=== PATIENT | female | born 1960 | race Caucasian/White ===

== ENCOUNTER 2017-04-28 07:39 | Inpatient (IN) ==
--- NOTE | 2017-04-27 21:53 | Discharge Summary ---
<Steffanie Middleton - Last Filed: 04/27/17 21:49> Date of Encounter: 04/27/17 - Discharge Diagnosis (1) Arthritis of knee, right Priority: Primary Status: Acute (2) Status post total knee replacement Priority: Primary Status: Acute Qualifiers: Laterality: right Qualified Code(s): Z96.651 - Presence of right artificial knee joint (3) HTN (hypertension) Priority: Secondary Status: Chronic Qualifiers: Hypertension type: essential hypertension Qualified Code(s): I10 - Essential (primary) hypertension (4) DMII (diabetes mellitus, type 2) Priority: Secondary Status: Chronic Qualifiers: Diabetes mellitus complication status: with unspecified complications Diabetes mellitus mcc insulin use: unspecified mcc insulin use status Qualified Code(s): E11.8 - Type 2 diabetes mellitus with unspecified complications (5) Obesity Priority: Secondary Status: Chronic Qualifiers: Obesity type: due to excess calories Obesity classification: unspecified obesity classification Serious obesity comorbidity presence: without serious comorbidity Qualified Code(s): E66.09 - Other obesity due to excess calories; Z68.38 - Body mass index (BMI) 38.0-38.9, adult (6) Depression Priority: Secondary Status: Chronic Qualifiers: Depression Type: unspecified Qualified Code(s): F32.9 - Major depressive disorder, single episode, unspecified - Discharge Medications Home Medications: Atorvastatin [Lipitor] 40 mg PO HS 11/01/16 [History] Duloxetine HCl [Cymbalta] 60 mg PO QPM 11/01/16 [History] FLUoxetine HCl [Prozac] 40 mg PO QAM 11/01/16 [History] Lisinopril [Zestril] 10 mg PO DAILY 11/01/16 [History] Metoprolol XL (24 HR) Succ [Toprol Xl] 25 mg PO HS 11/01/16 [History] Triamterene/HCTZ 37.5/25mg [Dyazide] 1 tab PO DAILY 11/01/16 [History] Aspirin Enteric Coated [Aspirin EC] 325 mg PO DAILY #21 tablet. 04/27/17 [Rx] OxyCODONE Immed Rel [Roxicodone 5 MG] 5 - 10 mg PO Q6HR PRN #40 tablet 04/27/17 [Rx] Gabapentin [Neurontin] 300 mg PO TID 04/28/17 [History] HYDROcodone/Acet 5/325 mg [[place] 5-325 mg] 1 tab PO TID 04/28/17 [History] Omeprazole [PriLOSEC] 40 mg PO DAILY 04/28/17 [History] metFORMIN [Glucophage] 500 mg PO BID 04/28/17 [History] Allergies/Adverse Reactions: Allergies No Known Allergies Allergy (Verified 04/28/17 08:18) Primary care physician: Deion Cobos CNP - Patient Status Disposition: Home, Self-Care Condition: Good - Discharge Instructions Follow Up With: Deion Cobos CNP [Primary Care Provider] - - Hospital Course Hospital course: Ms. Grant is a 56 year old female - Time Spent with Patient Total time spent providing and/or coordinating discharge services: <Tyler Andujar - Last Filed: 04/30/17 09:03> Date of Encounter: 04/30/17 Time of Encounter: 09:02 - Discharge Diagnosis (1) Arthritis of knee, right Priority: Primary Status: Chronic (2) Status post total knee replacement Priority: Primary Status: Acute Qualifiers: Laterality: right Qualified Code(s): Z96.651 - Presence of right artificial knee joint (3) HTN (hypertension) Priority: Secondary Status: Chronic Qualifiers: Hypertension type: essential hypertension Qualified Code(s): I10 - Essential (primary) hypertension (4) DMII (diabetes mellitus, type 2) Priority: Secondary Status: Chronic Qualifiers: Diabetes mellitus complication status: with unspecified complications Diabetes mellitus mcc insulin use: unspecified emt intermediate insulin use status Qualified Code(s): E11.8 - Type 2 diabetes mellitus with unspecified complications (5) Obesity Priority: Secondary Status: Chronic Qualifiers: Obesity type: due to excess calories Obesity classification: adult class 2 (BMI 35 ? 39.9) Serious obesity comorbidity presence: without serious comorbidity Body mass index: BMI 38.0-38.9 Qualified Code(s): E66.09 - Other obesity due to excess calories; Z68.38 - Body mass index (BMI) 38.0-38.9, adult (6) Depression Priority: Secondary Status: Chronic Qualifiers: Depression Type: unspecified Qualified Code(s): F32.9 - Major depressive disorder, single episode, unspecified Primary care physician: Deion Cobos CNP - Patient Status Functional capacity at discharge: uses cane/walker Overall status at discharge: patient is progressing back to baseline - Hospital Course Hospital course: Ms. Grant is a 56 year old female Status post total knee replacement. The patient had an uneventful postoperative course. They received antibiotics and physical therapy and were discharged in stable condition. There will follow -up in the office in 2 weeks. - Time Spent with Patient Total time spent providing and/or coordinating discharge services:
--- NOTE | 2017-04-28 08:01 | History & Physical Report ---
Date of Encounter: 04/28/17 Time of Encounter: 08:01 24 Hour HP Update - Instructions Instructions: If the History and Physical is less than 30 days old and was completed prior to A.M. admission and or procedure and has NOT been updated on calendar day of procedure please complete this update prior to performing procedure. - Update Patient reports changes in Medical Condition: No Changes in examination, assessment, or condition: No Changes in Medication: No Preop tests/diagnostics Reviewed: Yes Surgery Remains Indicated: Yes Consent for Planned Operative Procedure(s) Verified: Yes - Pre-Operative Checklist Preoperative Checklist Indicated: No Prophylactic Antibiotic Ordered: Yes Is VTE Prophylaxis Indicated?: Yes
[2017-04-28] MEDS ORDERED: CeFAZolin Pre 2,000 MG/100 ML 2,000 MG/100 ML BAG IVPB ONE (08:10)
[2017-04-28] MEDS ORDERED: Ringers Solution, Lactated 1,000 ML IVC SCH ×2 (08:15→11:47)
--- NOTE | 2017-04-28 08:42 | Anesthesia Evaluation PreOp ---
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 History: Denies Any Significant HX Other Medical History: Renal (creatinine is 2.24 today - no prior hx of renal problems) Anesthesia History: No Prior Anesthetic Complications (never underwent anesthesia previously) Alcohol Use: none Drug use: none Medications and Allergies Atorvastatin [Lipitor] 40 mg PO HS 11/01/16 [History] Duloxetine HCl [Cymbalta] 60 mg PO QPM 11/01/16 [History] FLUoxetine HCl [Prozac] 40 mg PO QAM 11/01/16 [History] Lisinopril [Zestril] 10 mg PO DAILY 11/01/16 [History] Metoprolol XL (24 HR) Succ [Toprol Xl] 25 mg PO HS 11/01/16 [History] Triamterene/HCTZ 37.5/25mg [Dyazide] 1 tab PO DAILY 11/01/16 [History] Aspirin Enteric Coated [Aspirin EC] 325 mg PO DAILY #21 tablet. 04/27/17 [Rx] OxyCODONE Immed Rel [Roxicodone 5 MG] 5 - 10 mg PO Q6HR PRN #40 tablet 04/27/17 [Rx] Gabapentin [Neurontin] 300 mg PO TID 04/28/17 [History] HYDROcodone/Acet 5/325 mg [[place] 5-325 mg] 1 tab PO TID 04/28/17 [History] Omeprazole [PriLOSEC] 40 mg PO DAILY 04/28/17 [History] metFORMIN [Glucophage] 500 mg PO BID 04/28/17 [History] Allergies No Known Allergies Allergy (Verified 04/28/17 08:18) - Meds/Allergy Pre-op Review Medications Reviewed: Yes Allergies Reviewed: Yes Beta Blockers on Current Med List: Yes If Beta Blockers taken, Date/Time (Last Dose taken): stopped two days ago; not indicated for this surgery Anesthesia Results - Labs Laboratory Tests 03/31/17 03/31/17 03/31/17 17:40 17:40 17:40 WBC 13.8 H Hgb 13.8 Hct 42.6 Plt Count 255 PT INR APTT Sodium 139 Potassium 4.4 Chloride 106 Carbon Dioxide 23 BUN 28 H Creatinine 2.24 H Est GFR ( Amer) 27 L Est GFR (Non-Af Amer) 22 L BUN/Creatinine Ratio 13 Glucose 223 H Est Mean Plasma Glucose 134 Hemoglobin A1c 6.3 H 04/22/17 13:10 WBC Hgb Hct Plt Count PT 10.8 INR 1.0 APTT 28.9 Sodium Potassium Chloride Carbon Dioxide BUN Creatinine Est GFR ( Amer) Est GFR (Non-Af Amer) BUN/Creatinine Ratio Glucose Est Mean Plasma Glucose Hemoglobin A1c - Imaging EKG: report reviewed, image reviewed (SR) Anesthesia Exam Last Vital Signs Temp 97.8 F 04/28/17 08:00 Pulse 76 04/28/17 08:00 Resp 18 04/28/17 08:00 BP 132/79 04/28/17 08:00 Pulse Ox 97 04/28/17 08:00 Weight: 102 kg NPO (# of Hours): >> 8 hrs - HEENT Pupil (Motor): Pupils equal, EOMI Mallampati: II Teeth: Normal Oral Opening: Greater than 3 - [address] CLERK LOC: Oriented APPELLATE COURT CLERK Motor: Normal RUE, Normal LUE, Normal RLE, Normal LLE, Normal Face - Cardiac Rhythm: Regular Murmur: None - Pulmonary Breath Sounds: bilateral Clear Respiratory Effort: Symmetrical Anesthesia Assess/Plan ASA Score: 3 Modified Elinor Scale for Level of Consciousness: Cooperative, oriented, and tranquil Anesthetic Plan: General, Regional Monitoring Plan: Standard Monitors Recovery Plan: PACU
[2017-04-28] MEDS ORDERED: *HR* Midazolam HCl 2 MG/2 ML VIAL ONE ×2 (08:58→09:31)
[2017-04-28] MEDS ORDERED: *HR* Propofol 200 MG/20 ML VIAL IVP ONE ×2 (08:58→09:31)
[2017-04-28] MEDS ORDERED: *HR* FentaNYL (PF) 100 MCG/2 ML VIAL ONE ×2 (08:58→09:31)
[2017-04-28] MEDS ORDERED: Ondansetron 4 MG/2 ML VIAL ONE (08:59)
[2017-04-28] MEDS ORDERED: Dexamethasone 4 MG/ML VIAL ONE (08:59)
[2017-04-28] MEDS ORDERED: Lidocaine -MPF 2% 2 ML VIAL ONE ×2 (08:59→09:31)
[2017-04-28] MEDS ORDERED: Ketorolac 30 MG/ML VIAL ONE (09:08)
[2017-04-28] MEDS ORDERED: Bupivacaine/Clonidine Syringe 1 EACH SYRINGE ONE (09:15)
[2017-04-28] MEDS ORDERED: ROPIVACAINE HCL/PF 0.5% 30 ML VIAL ONE (09:15)
[2017-04-28] MEDS ORDERED: *HR* Labetalol 20 MG/4 ML SYRINGE IVP PRN (10:07)
[2017-04-28] MEDS ORDERED: Ondansetron 4 MG/2 ML VIAL IVP ONE (10:07)
--- NOTE | 2017-04-28 10:11 | Anesthesia Procedures ---
Date of Encounter: 04/28/17 Time of Encounter: 09:41 Procedures: Anesthesia - Nerve Block Procedure Date: 04/28/17 Time: 09:41 Surgical Procedure: right total knee Checklist: Correct Patient Identifier, Correct procedure, History checked Correct side: Right Blood Thinner: No Monitor Applied: EKG, BP, Pulse Oximetry Supplemental Oxygen via Nasal Cannula (L/min): 2 Sedation: Versed (mg): 2 Sedation: Fentanyl (mcg): 100 Indication: Post Op Analgesia Pre-op Neuro Deficits: Yes Block Type: Femoral, Other (ipack) Sterile Technique: Yes Ultrasound used: Yes Anatomy identified: Yes Visual spread of Local: Yes Neuro Stimulation: Yes Nerve Stimulator Range: 0.2 - 0.4 mA Blood on Needle Aspiration: No Smooth Injection of Local: Yes Pain with Injection of Local: No Prep: Chlorhexadine Needle: 22 x 50 mm Stimuplex Local: 0.25% Bupivicaine w/Clonidine 20 mcg/cc (30ml), Ropivacaine (0.5% 30ml of rop plain) Volume (cc): 60 Number of Attempts: 1 Complications: None/effective block Vitals: vss, block per request of surgeon
--- NOTE | 2017-04-28 10:37 | Orthopedic Operative Note ---
Date of procedure: 04/28/17 Pre-op diagnosis: Right knee arthritis Post-op diagnosis: same Procedure: Procedure: right Total knee replacement Estimated blood loss: 200 cc Hardware: Metal and polyethylene replacement. Arthrex Femur:5 Tibia: 4 PS insert:14 Patella:30 Exam Under anesthesia: Valgus alingment full flexion and extension Procedural Notes:grade 4 arthritic changes lateral and patellofemoral joing Operative procedure: The patient was brought to the operating room and placed on the operating room table. After general anesthesia was administered the operative knee was examined. Findings were noted in the exam under anesthesia. The operative extremity was prepped and draped in sterile surgical fashion. The patient received IV antibiotics prior to skin incision. A standard midline incision was made centered over the patella. The incision was made through the skin and subcutaneous tissue. A medial parapatellar tendon approach was performed. Care was taken to preserve tissue along the medial aspect of the patella. And to protect the patella tendon. The deep MCL was released off the medial tibia. The infra patella fat pad was excised. Knee was brought into flexion. Grade 4 arthritic changes lateral compartment patellofemoral joint. The entry hole was made for the intramedullary femoral guide. The guide was seated in 6 degrees of valgus. Anterior cut was made followed by the distal cut. The ACL the PCL the medial and the lateral menisci were excised. The tibia was subluxed forward. The entry hole was made for the intramedullary tibial guide. Guide was seated to resect 2 mm off the more abnormal side. The knee was brought into flexion the distal femur was sized. The femoral guide was seated, the anterior cut was made followed by the posterior condylar cut, followed by the chamfer cuts. The finishing guide was seated the box cut was made and the lug holes were drilled. The tibia was sized 4, the tibial tray was seated and prepared with the large drill followed by the fin cutter. Trial reduction revealed full extension no varus valgus instability with the appropriate 14 PS Jeannie. The patella was everted and cut was made at the level of the insertion of the quadriceps and patella tendon. The patella was sized the guide was seated and the lug holes are drilled. Trial reduction revealed excellent patella tracking. All trial components were removed all bony surfaces were irrigated. The tibia was cemented first followed by the femur. The 14 PS Jeannie was seated and the knee was brought into full extension. The patella was cemented and held in place with the patellar holding clamp. After the cement had hardened, the knee sat for 2 minutes with a Betadine saline solution. The knee was then irrigated out with 2 L of pulse irrigation. The knee was closed by the PA. The extensor mechanism was closed with #2 FiberWire suture and #2 PDS suture. The subcutaneous tissue was then irrigated and closed deep with #1 PDS suture superficially with 0 PDS suture and skin was closed with skin kimber. The patient was then placed in a sterile dressing and a postoperative brace extubated and transferred to recovery room in stable condition. Anesthesia: GETA Surgeon: Tyler Andujar Stone Driller: Steffanie Middleton Condition: stable Disposition: PACU
[2017-04-28] MEDS: *HR* HYDROmorphone (PF) 1 MG/ML SYRINGE IVP PRN ×6 (11:03→17:15)
[2017-04-28] MEDS ORDERED: *HR* Meperidine 25 MG/ML SYRINGE ONE ×2 (11:05→11:10)
--- NOTE | 2017-04-28 11:45 | Anesthesia Evaluation Post Op ---
Date of Encounter: 04/28/17 Time of Encounter: 11:43 - Vital Signs Vital Signs: Vital Signs/O2 Sat, Most Current Temp Pulse Resp BP Pulse Ox 97.4 F L 93 16 147/73 96 04/28/17 11:30 04/28/17 11:30 04/28/17 11:30 04/28/17 11:30 04/28/17 11:30 - Lungs Lungs: Clear Ascult./Percussion - Airway Airway: Non-obstructed - Cardiovascular Regular Rate - Mental Status Mental Status: Alert & Oriented, Answers Appropriately - Pain Pain Scale: 0 Pain Scale used: Numeric (1 - 10) - Nausea Vomiting Nausea Vomiting: Present - Hydration Hydration: Ice chips - Discharge PostOp Status: Transfer Patient to floor
[2017-04-28] MEDS ORDERED: Sennosides 8.6 MG TABLET PO PRN (11:47)
[2017-04-28] MEDS ORDERED: Ondansetron 4 MG/2 ML VIAL IVP PRN (11:47)
[2017-04-28] MEDS ORDERED: D5% in Water 1,000 ML IVC PRN (11:47)
[2017-04-28] MEDS ORDERED: Dextrose Gel 15 GM PO PRN ×2 (11:47)
[2017-04-28] MEDS ORDERED: Naloxone 0.4 MG/ML INJ IVP PRN (11:47)
[2017-04-28] MEDS ORDERED: MOM Conc 10 ML UD.LIQ PO PRN (11:47)
[2017-04-28] MEDS ORDERED: *HR* OxyCODONE Immed Rel 5 MG TABLET PO PRN (11:47)
[2017-04-28] MEDS ORDERED: *HR* Dextrose 50 % in Water (Syg) 50 ML SYRINGE IVP PRN (11:47)
[2017-04-28] MEDS ORDERED: Temazepam 15 MG CAPSULE PO PRN (11:47)
[2017-04-28] MEDS: *HR* OxyCODONE Immed Rel 5 MG TABLET PO PRN ×3 (11:59→22:17)
[2017-04-28 12:09] LABS: Hematocrit 38.9 % (35.3-44.9); Hemoglobin 13.1 g/dL (11.5-15.4)
[2017-04-28] MEDS: Insulin LISPRO 300 UNITS/3 ML VIAL SQ SCH ×3 (12:11→22:23)
[2017-04-28] MEDS: Gabapentin 300 MG CAPSULE PO SCH ×2 (15:01→22:19)
[2017-04-28] MEDS: ceFAZolin 2,000 MG in D5% in Water 100 ML IVPB SCH (15:57)
[2017-04-28] MEDS: *HR* Enoxaparin 30 MG/0.3 ML SYRINGE SQ SCH (17:15)
[2017-04-28] MEDS: *HR* Metformin 500 MG TABLET PO SCH (17:15)
[2017-04-28] MEDS ORDERED: *HR* Enoxaparin 30 MG/0.3 ML SYRINGE SQ SCH ×2 (18:00)
[2017-04-28] MEDS: Metoprolol XL (24 HR) Succ 25 MG TAB.ER.24H PO SCH (22:19)
[2017-04-29] MEDS: ceFAZolin 2,000 MG in D5% in Water 100 ML IVPB SCH (00:01)
[2017-04-29] MEDS: *HR* HYDROmorphone (PF) 1 MG/ML SYRINGE IVP PRN ×5 (00:25→21:36)
[2017-04-29] MEDS: *HR* OxyCODONE Immed Rel 5 MG TABLET PO PRN ×3 (06:04→16:07)
[2017-04-29 06:22] LABS: Hematocrit 33.9 % (35.3-44.9)
[2017-04-29 06:25] LABS: Hemoglobin 11.3 g/dL (11.5-15.4)
[2017-04-29 06:38] LABS: Calcium 9.4 mg/dL (8.6-10.8); Potassium 4.3 mEq/L (3.5-4.5)
[2017-04-29] MEDS: FLUoxetine 20 MG CAPSULE PO SCH (08:27)
[2017-04-29] MEDS: *HR* Metformin 500 MG TABLET PO SCH ×2 (08:27→16:07)
[2017-04-29] MEDS: Gabapentin 300 MG CAPSULE PO SCH ×3 (08:27→20:27)
[2017-04-29] MEDS: Insulin LISPRO 300 UNITS/3 ML VIAL SQ SCH ×4 (08:28→21:47)
--- NOTE | 2017-04-29 12:15 | Orthopedics Progress Note ---
Date of Encounter: 04/29/17 Time of Encounter: 08:15 - Assessment and Plan (1) Arthritis of knee, right Current Visit: Yes Status: Chronic Right TKR 04/28/17 POD#1 Patient doing well, A&O in chair Vitals stable - Afebrile. H/H - Stable - 11.3/33.9 asymptomatic Plan: Continue in knee immobilizer at night x 2 weeks, Knee precautions x 6 weeks. RLE: WBAT D/C to Home today or tomorrow with outpatient PT - Work note given to millicent (2) Status post total knee replacement Current Visit: Yes Status: Acute Qualifiers: Laterality: right Qualified Code(s): Z96.651 - Presence of right artificial knee joint (3) HTN (hypertension) Current Visit: Yes Status: Chronic Qualifiers: Hypertension type: essential hypertension Qualified Code(s): I10 - Essential (primary) hypertension (4) DMII (diabetes mellitus, type 2) Current Visit: Yes Status: Chronic Qualifiers: Diabetes mellitus complication status: with unspecified complications Diabetes mellitus meterman insulin use: unspecified intermediate insulin use status Qualified Code(s): E11.8 - Type 2 diabetes mellitus with unspecified complications (5) Obesity Current Visit: Yes Status: Chronic Qualifiers: Obesity type: due to excess calories Obesity classification: adult class 2 (BMI 35 ? 39.9) Serious obesity comorbidity presence: without serious comorbidity Body mass index: BMI 38.0-38.9 Qualified Code(s): E66.09 - Other obesity due to excess calories; Z68.38 - Body mass index (BMI) 38.0-38.9, adult (6) Depression Current Visit: Yes Status: Chronic Qualifiers: Depression Type: unspecified Qualified Code(s): F32.9 - Major depressive disorder, single episode, unspecified Subjective Principal diagnosis: Right TKR 04/28/17 Interval history: Right TKR 04/28/17 POD#1 Patient doing well, A&O in chair Vitals stable - Afebrile. H/H - Stable - 11.3/33.9 asymptomatic RLE: Minimal swelling, no erythema or ecchymosis noted. No calf tenderness or warmth noted. ROM limited. NV intact distally. Plan: Continue in knee immobilizer at night x 2 weeks, Knee precautions x 6 weeks. RLE: WBAT D/C to Home today or tomorrow with outpatient PT - Work note given to navigator Objective Vital signs: Vital Signs Temp Pulse Resp BP Pulse Ox 04/29/17 10:54 98.1 F 90 18 132/76 100 04/29/17 06:50 99.0 F 104 18 146/73 100 04/29/17 05:11 97.9 F 92 16 148/89 99 04/29/17 02:03 128/84 04/29/17 00:45 98.8 F 88 17 177/100 97 04/28/17 13:50 98.3 F 96 14 147/83 96 04/28/17 12:58 98.1 F 103 18 138/86 97 04/28/17 12:24 98.5 F 91 16 146/82 99 Intake and Output 04/28/17 04/29/17 04/29/17 23:59 07:59 15:59 Intake Total 1100 / 1100 500 / 500 120 / 120 Output Total 1100 / 1100 300 / 300 Balance 0 / 0 200 / 200 120 / 120 Intake: IV Fluids 1100 / 1100 Lactated Ringers 1,000 ML 1000 / 1000 @ 75 mls/hr IVC .[id number] YESSY Rx#:[id number] Ancef 2,000 MG In 100 / 100 Dextrose 5% 100 ML @ 200 mls/hr IVPB Q8HR YESSY Rx#: [id number] Oral 500 / 500 120 / 120 Output: Urine 1100 / 1100 300 / 300 Other: Meal Breakfast Percent of Meal Consumed 50% # Voids 2 Blood Glucose* 225 124 117 Incision: clean and dry - Labs CBC & BMP: 04/29/17 06:03 04/29/17 06:03 Labs: Abnormal lab results Hgb 11.3 g/dL (11.5-15.4) L D 04/29/17 06:03 Hct 33.9 % (35.3-44.9) L 04/29/17 06:03 Sodium 135 mEq/L (136-145) L 04/29/17 06:03 BUN 21 mg/dL (7-20) H 04/29/17 06:03 Creatinine 1.28 mg/dL (0.57-1.11) H 04/29/17 06:03 Est GFR ( Amer) 52 (> 60) L 04/29/17 06:03 Est GFR (Non-Af Amer) 43 (> 60) L 04/29/17 06:03 Glucose 128 mg/dL (70-99) H 04/29/17 06:03 POC Glucose 117 (58-89) H 04/29/17 10:55 - VTE Documentation of Mechanical Device: Venous foot pump, device Consult Discharge Plan - Plan Referrals: Deion Cobos, YOUTH SERVICES SPECIALIST [Primary Care Provider] -
--- NOTE | 2017-04-29 12:33 | Event Note ---
Date of Encounter: 04/29/17 Time of Encounter: 12:33 PCR - POD#1 - Right TKR 04/28/17 Patient seen at bedside. Pain control: adequate Participating in PT. All questions and concerns addressed. Educated on use of incentive spirometer, ambulation, and hydration. Patient educated on post-operative restrictions and care. Addressed: D/C plan:. Outpatient PT
[2017-04-29] MEDS: *HR* Enoxaparin 30 MG/0.3 ML SYRINGE SQ SCH (16:56)
[2017-04-29] MEDS: Metoprolol XL (24 HR) Succ 25 MG TAB.ER.24H PO SCH (20:27)
[2017-04-30] MEDS: *HR* HYDROmorphone (PF) 1 MG/ML SYRINGE IVP PRN ×2 (01:35→05:42)
[2017-04-30] MEDS: *HR* OxyCODONE Immed Rel 5 MG TABLET PO PRN ×2 (05:53→10:15)
[2017-04-30 05:54] LABS: Hemoglobin 10.3 g/dL (11.5-15.4)
[2017-04-30 06:10] LABS: BUN/Creatinine Ratio 17 (6-26); Blood Urea Nitrogen 17 mg/dL (7-20); Calcium 9.5 mg/dL (8.6-10.8); Carbon Dioxide 29 mEq/L (19-29); Chloride 94 mEq/L (98-109); Glucose 117 mg/dL (70-99); Osmolality,Calculated 273 (280-300); Potassium 3.8 mEq/L (3.5-4.5); Sodium 130 mEq/L (136-145); eGFR For African Americans > 60 (> 60); eGFR For Non-African Americans 57 (> 60)
[2017-04-30] MEDS: Insulin LISPRO 300 UNITS/3 ML VIAL SQ SCH (08:46)
[2017-04-30] MEDS: FLUoxetine 20 MG CAPSULE PO SCH (08:49)
[2017-04-30] MEDS: *HR* Metformin 500 MG TABLET PO SCH (08:50)
[2017-04-30] MEDS: Gabapentin 300 MG CAPSULE PO SCH (08:50)
--- NOTE | 2017-04-30 09:04 | Orthopedics Progress Note ---
Date of Encounter: 04/30/17 Time of Encounter: 09:03 - Assessment and Plan (1) Arthritis of knee, right Current Visit: Yes Status: Chronic (2) Status post total knee replacement Current Visit: Yes Status: Acute Qualifiers: Laterality: right Qualified Code(s): Z96.651 - Presence of right artificial knee joint (3) HTN (hypertension) Current Visit: Yes Status: Chronic Qualifiers: Hypertension type: essential hypertension Qualified Code(s): I10 - Essential (primary) hypertension (4) DMII (diabetes mellitus, type 2) Current Visit: Yes Status: Chronic Qualifiers: Diabetes mellitus complication status: with unspecified complications Diabetes mellitus mcfp insulin use: unspecified manager terminal insulin use status Qualified Code(s): E11.8 - Type 2 diabetes mellitus with unspecified complications (5) Obesity Current Visit: Yes Status: Chronic Qualifiers: Obesity type: due to excess calories Obesity classification: adult class 2 (BMI 35 ? 39.9) Serious obesity comorbidity presence: without serious comorbidity Body mass index: BMI 38.0-38.9 Qualified Code(s): E66.09 - Other obesity due to excess calories; Z68.38 - Body mass index (BMI) 38.0-38.9, adult (6) Depression Current Visit: Yes Status: Chronic Qualifiers: Depression Type: unspecified Qualified Code(s): F32.9 - Major depressive disorder, single episode, unspecified Subjective Principal diagnosis: Right TKR 04/28/17 Interval history: Patient was seen this morning doing well without complaints. Afebrile vital signs stable. Operative extremity: Neurovascularly intact Dressing clean dry and intact Calves nontender Assessment and plan: Continue with postoperative care Hematocrit 31, discharged today Objective Vital signs: Vital Signs Temp Pulse Resp BP Pulse Ox 04/30/17 07:33 99.1 F 86 17 116/72 90 04/30/17 05:18 99.2 F 101 17 113/74 93 04/30/17 00:42 98.4 F 111 16 121/80 90 04/29/17 22:24 98.8 F 102 19 130/82 96 04/29/17 15:20 99.9 F H 95 18 126/75 98 04/29/17 10:54 98.1 F 90 18 132/76 100 Intake and Output 04/29/17 04/30/17 04/30/17 23:59 07:59 15:59 Intake Total 600 / 600 Balance 600 / 600 Intake: Oral 600 / 600 Other: # Voids 1 Blood Glucose* 141 138 - Labs CBC & BMP: 04/30/17 05:29 04/30/17 05:29 Labs: Abnormal lab results Hgb 10.3 g/dL (11.5-15.4) L 04/30/17 05:29 Hct 31.0 % (35.3-44.9) L 04/30/17 05:29 Sodium 130 mEq/L (136-145) L 04/30/17 05:29 Chloride 94 mEq/L (98-109) L 04/30/17 05:29 Est GFR (Non-Af Amer) 57 (> 60) L 04/30/17 05:29 Glucose 117 mg/dL (70-99) H 04/30/17 05:29 POC Glucose 138 (58-89) H 04/30/17 07:37 Calculated Osmolality 273 (280-300) L 04/30/17 05:29 - VTE Documentation of Mechanical Device: Intermittent pneumatic compression device Consult Discharge Plan - Plan Referrals: Deion Cobos, SCIENCE TECHNICIAN [Primary Care Provider] -
[2017-04-30 11:34] VITALS: BP 128/81
--- NOTE | 2017-04-30 17:00 | Event Note ---
Date of Encounter: 04/30/17 Time of Encounter: 12:00 PCR - POD#2 - Right TKR 04/28/17 Patient seen at bedside. Pain control: adequate Participating in PT. All questions and concerns addressed. Educated on use of incentive spirometer, ambulation, and hydration. Patient has O2 on via NC per patient "because I wanted it". Requested she d/c this so she can leave today. Patient immediately removed NC. Patient educated on post-operative restrictions and care. D/C plan:. Outpatient PT
== END 2017-04-30 12:49 | disposition home or self-care (01) | DRG 302 ==
LOC: SAMDAY 07:39 → 3NENU 11:49
PROVIDERS: ADMIT Orthopaedic Surgery; ATTEND Orthopaedic Surgery

== ENCOUNTER 2018-12-23 09:32 | Inpatient (IN) ==
--- NOTE | 2018-12-22 17:36 | Discharge Summary ---
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9 - Obesity, unspecified (7) CKD (chronic kidney disease) Priority: Secondary Status: Chronic Qualifiers: Chronic kidney disease stage: stage 3 (moderate) Qualified Code(s): N18.3 - Chronic kidney disease, stage 3 (moderate) - Hospital Course Hospital course: Ms. Grant is a 58 year old female - Time Spent with Patient Total time spent providing and/or coordinating discharge services: - Discharge Medications Prescriptions: New RX: OxyCODONE Immed Rel [Roxicodone 5 MG] 5 mg PO Q6HR PRN 5 Days #20 tablet PRN Reason: Severe Pain RX: Aspirin Enteric Coated [Aspirin EC] 325 mg PO BID 10 Days #20 tablet.dr RX: Docusate Sodium [Colace] 100 mg PO BID 5 Days #10 capsule Continue RX: Lisinopril [Zestril] 10 mg PO DAILY RX: Atorvastatin [Lipitor] 40 mg PO HS RX: FLUoxetine HCl [Prozac] 40 mg PO QAM RX: Duloxetine HCl [Cymbalta] 60 mg PO QPM RX: metFORMIN [Glucophage] 500 mg PO BID RX: Hydrochlorothiazide [Microzide] 12.5 mg PO QAM RX: Pantoprazole Sodium [Protonix] 40 mg PO DAILY RX: FLUoxetine HCl [Prozac] 20 mg PO DAILY RX: Metoprolol Succinate [Toprol Xl] 50 mg PO HS RX: Ondansetron ODT [Zofran ODT] 4 mg PO TID PRN PRN Reason: Nausea RX: Quetiapine Fumarate [Seroquel] 25 mg PO DAILY RX: Topiramate 50 mg PO BID RX: BuPROPion SR (12 HR) [Wellbutrin SR] 150 mg PO QAM RX: Fluticasone Propionate Nasal [Flonase] 1 spr NS DAILY Home Medications: RX: Atorvastatin [Lipitor] 40 mg PO HS 11/01/16 [History] RX: Duloxetine HCl [Cymbalta] 60 mg PO QPM 11/01/16 [History] RX: FLUoxetine HCl [Prozac] 40 mg PO QAM 11/01/16 [History] RX: Lisinopril [Zestril] 10 mg PO DAILY 11/01/16 [History] RX: metFORMIN [Glucophage] 500 mg PO BID 04/28/17 [History] RX: Hydrochlorothiazide [Microzide] 12.5 mg PO QAM 12/08/17 [History] RX: Pantoprazole Sodium [Protonix] 40 mg PO DAILY 12/08/17 [History] RX: Aspirin Enteric Coated [Aspirin EC] 325 mg PO BID 10 Days #20 tablet. 12/23/18 [Rx] RX: BuPROPion SR (12 HR) [Wellbutrin SR] 150 mg PO QAM 12/23/18 [History] RX: Docusate Sodium [Colace] 100 mg PO BID 5 Days #10 capsule 12/23/18 [Rx] RX: FLUoxetine HCl [Prozac] 20 mg PO DAILY 12/23/18 [History] RX: Fluticasone Propionate Nasal [Flonase] 1 spr NS DAILY 12/23/18 [History] RX: Metoprolol Succinate [Toprol Xl] 50 mg PO HS 12/23/18 [History] RX: Ondansetron ODT [Zofran ODT] 4 mg PO TID PRN 12/23/18 [History] RX: OxyCODONE Immed Rel [Roxicodone 5 MG] 5 mg PO Q6HR PRN 5 Days #20 tablet 12/23/18 [Rx] RX: Quetiapine Fumarate [Seroquel] 25 mg PO DAILY 12/23/18 [History] RX: Topiramate 50 mg PO BID 12/23/18 [History] Allergies/Adverse Reactions: Allergy/AdvReac Type Severity Reaction Status Date / Time No Known Allergies Allergy Verified 12/23/18 10:18 Date of admission: 12/23/18 Primary care physician: Hieu Bey MD Discharging clinician: Tyler Andujar Anticipated date of discharge: 12/24/18 - VTE Documentation of Mechanical Device: Venous foot pump, device - Patient Status Disposition: Home, Self-Care Condition: Fair Functional capacity at discharge: uses cane/walker Overall status at discharge: patient is progressing back to baseline - Discharge Instructions Follow Up With: Hieu Bey MD [Primary Care Provider] - Additional Instructions: Discharge Instructions: Total Knee Replacement Please call [facility] ([phone]), your Primary Care Physician, or report to the Emergency Room if you have any of the following symptoms: Nausea, vomiting, fever greater that 101.5, swelling, chest pain, shortness of breath, increased pain/redness/drainage/odor for your incision site, numbness/tingling, or any other concerning symptoms. ACTIVITY:Weight-bearing as tolerated. You may progress off support (crutches or walker) as tolerated. Incentive Spirometer 10 times an hour. No knee motion. MEDICATIONS: Upon discharge resume your home medications. Take all the medications as prescribed. Take a stool softener if taking narcotic pain medications. Stool softeners are only effective if you drink enough fluids. Drink 6-8 glass of water or fluids a day, unless this is not allowed for another health problem. Despite using stool softeners, if you haven't had a bowel movement in 3 days, please switch to a gentle laxative. Gentle laxatives are sold over the counter. You should have a bowel movement within 24 hours, if not call the office. You will be discharged from the hospital with a prescription for pain medication. You are encouraged to decrease the use of narcotic pain medication as tolerated. Should you require a refill, please call the office. [facility] prescribes narcotic pain medication for only 4-6 weeks after surgery. If you require pain medication beyond this time period, you may be referred to your Primary Care Physician or to the Pain Clinic for further evaluation. Plan ahead for refills on pain medication as many narcotics either need to be picked up at the office or mailed. It is best to call 48-72 hours in advance of needing a prescription refill so you don't run out of medication. To help control the post-operative pain, you may take NSAIDs (Aleve,Advil, Motrin, Ibuprofen, Naprosyn) or Tylenol as prescribed on the bottle in addition to the pain medication. ANTICOAGULATION (blood thinners): Continue your Aspirin, Lovenox or Coumadin as prescribed to help prevent a blood clot in the leg or in the lungs. As long as your incision remains dry and you tolerate the NSAIDs (Aleve, Advil, Motrin, ibuprofen, naprosyn), it is OK to use the NSAIDS while you are taking your anticoagulation medication. Should your incision start to drain, stop the NSAID and contact our office. Common symptoms of blood clot in the legs include: localized pain, swelling, calf tenderness, redness or discoloration of the skin. Blood clot in the lung symptoms include: shortness of breath, rapid pulse, sweating, and chest pain that worsens with deep breathing, coughing up blood, lightheadedness, feelings of anxiety. If you experience any of these symptoms notify your physician immediately, go to the emergency room, or if having trouble breathing, call 911. WOUND CARE: Leave the dressing on for 7 to 10days. You may change the dressing if it becomes saturated greater than 50%. Do not get the dressing wet at any time. Wash your hands with antibacterial soap, rinse and dry prior to any wound care. If you have kimber the visiting nurse or rehab facility can remove the stapes 10-14 days after surgery and place steri-strips across the wound. Leave the steri-strips in place until they fall off on their won. You may let water from the shower run on top of the steri-strips. If you do not have a visiting nurse or rehab facility, you will need to return to the office at 10-14 days for the kimber to be removed. If you have itching or redness around the dressing call the office. FOLLOW-UP: Please follow up with your surgeon in the orthopedic clinic in 4 weeks from the day of surgery. If you have kimber that need to be removed, you will need to come back to the office in 10-14 days from the day of surgery. - Diet and Activity Activity: as per physical therapy Diet: advance to your usual diet
[~2018-12-23 09:32] MED LIST: Ropivacaine/PF 0.5% 24.62 ML, EPINEPHrine 0.25 MG, Ketorolac 15 MG, Water for inj. (ste... IR ONE
[2018-12-23] MEDS ORDERED: Famotidine 20 MG/2 ML VIAL IVP ONE (10:04)
[2018-12-23] MEDS ORDERED: Gabapentin 300 MG CAPSULE PO ONE (10:04)
--- NOTE | 2018-12-23 10:04 | History & Physical Report ---
Date of Encounter: 12/23/18 Time of Encounter: 10:03 24 Hour HP Update - Instructions Instructions: If the History and Physical is less than 30 days old and was completed prior to A.M. admission and or procedure and has NOT been updated on calendar day of procedure please complete this update prior to performing procedure. - Update Patient reports changes in Medical Condition: No Changes in examination, assessment, or condition: No Changes in Medication: No Preop tests/diagnostics Reviewed: Yes Surgery Remains Indicated: Yes Consent for Planned Operative Procedure(s) Verified: Yes - Pre-Operative Checklist Preoperative Checklist Indicated: No Prophylactic Antibiotic Ordered: Yes Is VTE Prophylaxis Indicated?: Yes
[2018-12-23] MEDS ORDERED: *HR* OxyCODONE ER (12 HR) 10 MG TABLET PO ONE (10:05)
[2018-12-23] MEDS ORDERED: 0.9 % Sodium Chloride 1,000 ML IVC SCH (10:15)
[2018-12-23] MEDS ORDERED: CeFAZolin Syr 2,000MG/20 ML 2,000 MG/20 ML SYRINGE IVPB ONE (10:24)
[2018-12-23] MEDS ORDERED: Ringers Solution, Lactated 1,000 ML IVC SCH ×2 (10:30→15:28)
--- NOTE | 2018-12-23 10:44 | Anesthesia Evaluation PreOp ---
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 CAPACITOR PROCESSING History: Other (Chrocic back pain no myelopathy) Other Medical History: Renal (CKD), Diabetes Type II, Other (Obese) Anesthesia History: No Prior Anesthetic Complications Alcohol Use: none Drug use: none Medications and Allergies Atorvastatin [Lipitor] 40 mg PO HS 11/01/16 [History] Duloxetine HCl [Cymbalta] 60 mg PO QPM 11/01/16 [History] FLUoxetine HCl [Prozac] 40 mg PO QAM 11/01/16 [History] Lisinopril [Zestril] 10 mg PO DAILY 11/01/16 [History] metFORMIN [Glucophage] 500 mg PO BID 04/28/17 [History] Hydrochlorothiazide [Microzide] 12.5 mg PO QAM 12/08/17 [History] Pantoprazole Sodium [Protonix] 40 mg PO DAILY 12/08/17 [History] Aspirin Enteric Coated [Aspirin EC] 325 mg PO BID 10 Days #20 tablet. 12/23/18 [Rx] BuPROPion SR (12 HR) [Wellbutrin SR] 150 mg PO QAM 12/23/18 [History] Docusate Sodium [Colace] 100 mg PO BID 5 Days #10 capsule 12/23/18 [Rx] FLUoxetine HCl [Prozac] 20 mg PO DAILY 12/23/18 [History] Fluticasone Propionate Nasal [Flonase] 1 spr NS DAILY 12/23/18 [History] Metoprolol Succinate [Toprol Xl] 50 mg PO HS 12/23/18 [History] Ondansetron ODT [Zofran ODT] 4 mg PO TID PRN 12/23/18 [History] OxyCODONE Immed Rel [Roxicodone 5 MG] 5 mg PO Q6HR PRN 5 Days #20 tablet 12/23/18 [Rx] Quetiapine Fumarate [SEROquel] 25 mg PO DAILY 12/23/18 [History] Topiramate 50 mg PO BID 12/23/18 [History] Allergy/AdvReac Type Severity Reaction Status Date / Time No Known Allergies Allergy Verified 12/23/18 10:18 - Meds/Allergy Pre-op Review Medications Reviewed: Yes Allergies Reviewed: Yes Beta Blockers on Current Med List: Yes (Metoprolol last night 2029) Anesthesia Results - Labs Laboratory Tests 12/07/18 12/07/18 10:53 10:53 Hgb 14.3 Hct 43.8 Plt Count 282 Sodium 139 Potassium 3.8 BUN 22 Creatinine 1.24 H - Imaging EKG: report reviewed (SR) Anesthesia Exam O2 Sat Height 1.65 m Height 1.65 m Weight 99.79 kg Weight 99.79 kg O2 Sat by Pulse Oximetry 98 Vital Signs Temp Pulse Resp BP Pulse Ox 97.9 F 67 16 127/75 98 12/23/18 10:19 12/23/18 10:19 12/23/18 10:19 12/23/18 10:12/23/18 10:19 Height: 5'5 Weight: 220 lbs NPO (# of Hours): MN Pain Scale: 0 - HEENT Pupil (Motor): Pupils equal, EOMI Mallampati: III Teeth: Normal Oral Opening: Less than or equal to 3 - SUPERVISOR CAPACITOR PROCESSING LOC: Oriented SUPERVISOR CAPACITOR PROCESSING Motor: Normal RUE, Normal LUE, Normal RLE, Normal LLE, Normal Face SUPERVISOR CAPACITOR PROCESSING Sensory: Normal: RUE, LUE, RLE, LLE, Face - Cardiac Rhythm: Regular Murmur: None JVD: No Carotid Bruit: No - Pulmonary Breath Sounds: bilateral Clear Respiratory Effort: Symmetrical Anesthesia Assess/Plan ASA Score: 3 (HTN DM CKD Obese) Level of consciousness: Cooperative, Oriented Anesthetic Plan: Regional Nerve Block, Spinal Regional Nerve Block Plan: Adductor canal Autologous Blood: No Monitoring Plan: Standard Monitors Recovery Plan: PACU (Discussed SAB with Adductor Canal Block, possible GA, agrees to proceed)
[2018-12-23] MEDS ORDERED: *HR* Midazolam HCl 2 MG/2 ML VIAL ONE (10:45)
[2018-12-23] MEDS ORDERED: *HR* FentaNYL (PF) 100 MCG/2 ML VIAL ONE (10:45)
[2018-12-23] MEDS ORDERED: *HR* Propofol 200 MG/20 ML VIAL IVP ONE (10:45)
[2018-12-23] MEDS ORDERED: ROPIVACAINE HCL/PF 0.5% 30 ML VIAL ONE (11:18)
[2018-12-23] MEDS ORDERED: Ethanol\\Acetic Acid\\Na Ace\\Ben 1,000 ML IRRIG.SOLN IR ONE (11:36)
[2018-12-23] MEDS ORDERED: Propofol 500 MG/50 ML INFUS..BTL ONE ×2 (11:50→13:01)
--- NOTE | 2018-12-23 12:07 | Anesthesia Procedures ---
Date of Encounter: 12/23/18 Time of Encounter: 11:30 Procedures: Anesthesia - Epidural/Spinal Patient ID/Chart reviewed: Yes Patient examined: Yes Consent Obtained: Yes Supplemental Oxygen: Nasal Cannula Supplemental Oxygen Rate (L/min): 2 Sedation: Versed (mg): 2 Sedation: Fentanyl (mcg): 100 Site Prep: Aseptic Technique, Sterile prep and drape, Povidone-Iodine 1% Patient position: upright Local Anesthetic: Lidocaine 1% Amount of Local Anesthetic used: 5 Interspace Used: L4-L5 Loss of Resistance (PETE): No Blood: No CSF: Yes Paresthesia: No Spinal Needle Gauge: 22 Spinal Dose: 12.5 mg isobaric marcaine Procedure: Patient sitting, monitors placed sterile prep and drape midline L4-5, 22 gauge spinal needle plus CSF - Nerve Block Procedure Date: 12/23/18 Time: 11:30 Pre-op Diagnosis: TKA Revision Surgical Procedure: Revision Checklist: Correct Patient Identifier Correct side: Right Blood Thinner: No Monitor Applied: EKG, BP, Pulse Oximetry Supplemental Oxygen via Nasal Cannula (L/min): 2 Sedation: Versed (mg): 2 Sedation: Fentanyl (mcg): 100 Indication: Post Op Analgesia Pre-op Neuro Deficits: No Block Type: Other (Adductor Canal Block) Catheter placed: No Depth at skin (cm): 4 Sterile Technique: Yes Ultrasound used: Yes Anatomy identified: Yes Visual spread of Local: Yes Neuro Stimulation: No Blood on Needle Aspiration: No Smooth Injection of Local: Yes Pain with Injection of Local: No Prep: Chlorhexadine Needle: 21 x 100 mm Stimuplex Local: Ropivacaine Volume (cc): 30 Number of Attempts: 1 Complications: None/effective block Vitals: Vital Signs/O2 Sat/Glucose, Most Current Temp Pulse Resp BP Pulse Ox 12/23/18 10:19 97.9 F 67 16 127/75 98
[2018-12-23] MEDS ORDERED: EPHEDrine 50 MG/ML VIAL ONE (12:39)
[2018-12-23] MEDS ORDERED: *HR* PHENYLEPHRINE 1,000 MCG/10 ML SYRINGE IVP ONE (12:58)
[2018-12-23] MEDS ORDERED: Dexamethasone 4 MG/ML VIAL ONE (13:41)
[2018-12-23] MEDS ORDERED: Ondansetron 4 MG/2 ML VIAL ONE (13:41)
--- NOTE | 2018-12-23 13:42 | Orthopedic Operative Note ---
Date of procedure: 12/23/18 Pre-op diagnosis: Right tibial aseptic loosening total knee replacement Post-op diagnosis: same Procedure: Procedure: Right robotic-assisted Total knee replacement Estimated blood loss: 200 cc Hardware: Metal and polyethylene replacement. Shira Femur: 3, 12 x 50 cemented stem 5 mm posterior lateral augment Tibia: 4, temperature 100 stem 5 mm medial augment TS insert: 19 2 Arthrex swivel lock suture anchors 4.75 Exam Under anesthesia: 15 degree hyperextension 6 degree varus as calculated by the robot full flexion and no instability Procedural Notes: Patient loosening and subsidence of tibial component, partial MCL avulsion repaired with 2 Arthrex swivel lock suture anchors Operative procedure: The patient was brought to the operating room and placed on the operating room table. After general anesthesia was administered the operative knee was examined. Findings were noted in the exam under anesthesia. The operative extremity was prepped and draped in sterile surgical fashion. The patient received IV antibiotics prior to skin incision. A standard midline incision was made centered over the patella through the old incision. The incision was made through the skin and subcutaneous tissue. A medial parapatellar tendon approach was performed. Care was taken to preserve tissue along the medial aspect of the patella. And to protect the patella tendon. Normal joint fluid was encountered, this was sent for Gram stain and culture. The deep MCL was released off the medial tibia. The infra patella fat pad was excised. The patella was everted, evaluation revealed no patella abnormalities. Knee was brought into flexion. Steinmann pins were placed in the tibia and the femur for the tibial and femoral arrays respectively. The knee including the femur and the tibial registered. Care was taken to disrupt the interface between the femoral component and the patients proximal femur this was removed without incident, no significant bone loss. The tibial component was loose and removed easily. Femoral cuts were made first with robotic assistance, these included the anterior cut posterior cuts chamfer cuts. Tibial cut was then performed with robotic assistance as well. Bone fragments were removed, as well as the medial and lateral meniscus. The size 3 femoral guide was seated box cut was made lug holes are drilled. The size 4 tibial tray was seated and prepared with the fin cutter. Trial reduction was found to be best with a 5 mm posterior lateral augment on the femur and a 5 mm medial augment on the tibia. with the 19 TS Jeannie revealed extension of 0 degree and 6 degrees varus . No varus valgus instability. Trial reduction revealed excellent patella tracking. Intraoperative x-ray show good alignment. All trial components were removed all bony surfaces were irrigated. Components were assembled on the back table The Tibia was seated followed by the femur, The selected Jeannie size was seated and secured patella. The knee was brought into flexion and a portion of the MCL avulsed with a small part of the medial epicondyle. This was identified medially and repaired and extension with 2 Arthrex 4.75 swivel lock suture anchors. This gave a secure repair. Patella had good tracking. The knee was closed by the PA. The knee was then irrigated out with 2 L of pulse irrigation. The extensor mechanism was closed with #2 FiberWire suture and #2 PDS suture. The subcutaneous tissue was then irrigated and closed deep with #1 PDS suture superficially with 0 PDS suture and skin was closed with kimber and zip tie The patient was then placed in a sterile dressing and a postoperative brace extubated and transferred to recovery room in stable condition. Anesthesia: spinal Surgeon: Tyler Andujar Was there an assistant operations manager present: Yes Gaming Cashier: Nisa Hylton Estimated blood loss (cc): 200 Condition: stable Disposition: PACU
[2018-12-23] MEDS ORDERED: Albuterol 2.5 MG/3 ML NEBULIZER IH ONE (14:16)
[2018-12-23] MEDS ORDERED: *HR* Promethazine 25 MG/ML VIAL IVP PRN ×2 (14:16→15:28)
[2018-12-23] MEDS ORDERED: *HR* OxyCODONE Immed Rel 5 MG TABLET PO PRN ×2 (14:16→15:28)
[2018-12-23 14:54] LABS: Hematocrit 38.5 % (35.3-44.9); Hemoglobin 12.5 g/dL (11.5-15.4)
--- NOTE | 2018-12-23 15:09 | Anesthesia Evaluation Post Op ---
Date of Encounter: 12/23/18 Time of Encounter: 15:09 - Vital Signs Vital Signs: Last Vital Signs Temp 98 F 12/23/18 14:55 Pulse 80 12/23/18 14:55 Resp 12 12/23/18 14:55 BP 123/65 12/23/18 14:55 Pulse Ox 97 12/23/18 14:55 - Lungs Lungs: Clear Ascult./Percussion - Airway Airway: Non-obstructed - Cardiovascular Regular Rate - Mental Status Mental Status: Alert & Oriented, Answers Appropriately - Pain Pain Scale: 1 - Nausea Vomiting Nausea Vomiting: Not Present - Hydration Hydration: NPO - Discharge PostOp Status: Transfer Patient to floor
[2018-12-23] MEDS ORDERED: HYDROcodone BIT/Homatropine 5 MG TABLET PO PRN (15:28)
[2018-12-23] MEDS ORDERED: Naloxone 0.4 MG/ML INJ IVP PRN (15:28)
[2018-12-23] MEDS ORDERED: Temazepam 15 MG CAPSULE PO PRN (15:28)
[2018-12-23] MEDS ORDERED: MOM Conc 10 ML UD.LIQ PO PRN (15:28)
[2018-12-23] MEDS ORDERED: Ondansetron 4 MG/2 ML VIAL IVP PRN (15:28)
[2018-12-23] MEDS ORDERED: Sennosides 8.6 MG TABLET PO PRN (15:28)
[2018-12-23] MEDS ORDERED: Ondansetron ODT 4 MG TAB.RAPDIS PO PRN (15:28)
[2018-12-23] MEDS ORDERED: traMADol 50 MG TABLET PO PRN (15:28)
[2018-12-23] MEDS ORDERED: *HR* Enoxaparin 30 MG/0.3 ML SYRINGE SQ SCH (18:00)
[2018-12-23] MEDS: *HR* Enoxaparin 30 MG/0.3 ML SYRINGE SQ SCH (18:18)
[2018-12-23] MEDS: Ascorbic Acid 500 MG TABLET PO SCH (18:18)
[2018-12-23] MEDS: Topiramate 25 MG TABLET PO SCH (20:00)
[2018-12-23] MEDS: *HR* Metformin 500 MG TABLET PO SCH (20:00)
[2018-12-23] MEDS ORDERED: Metoprolol XL (24 HR) Succ 50 MG TAB.ER.24H PO SCH (21:00)
[2018-12-24] MEDS ORDERED: *HR* OxyCODONE Immed Rel 5 MG TABLET PO PRN (04:32)
[2018-12-24] MEDS: *HR* OxyCODONE Immed Rel 5 MG TABLET PO PRN ×2 (04:37→10:47)
[2018-12-24] MEDS: *HR* Enoxaparin 30 MG/0.3 ML SYRINGE SQ SCH (04:43)
[2018-12-24] MEDS ORDERED: Ketorolac 30 MG/ML VIAL IVP PRN (04:57)
[2018-12-24] MEDS ORDERED: Acetaminophen IV 1,000 MG/100 ML INFUS..BTL IVPB PRN (04:57)
--- NOTE | 2018-12-24 06:17 | Orthopedics Progress Note ---
Date of Encounter: 12/24/18 Time of Encounter: 06:17 Subjective Interval history: Patient was seen this morning doing well without complaints. Afebrile vital signs stable. Operative extremity: Neurovascularly intact Dressing clean dry and intact Calves nontender Assessment and plan: Continue with postoperative care Hematocrit 38 plan for discharge today Objective Vital signs: Vital Signs Temp Pulse Resp BP Pulse Ox 12/24/18 03:17 98.3 F 79 18 146/80 91 12/23/18 22:40 98.2 F 77 17 159/88 98 12/23/18 18:36 97.7 F 80 16 119/77 97 12/23/18 16:20 97.5 F L 73 14 143/84 99 12/23/18 15:25 97.5 F L 72 18 128/77 99 12/23/18 14:55 98 F 80 12 123/65 97 12/23/18 14:45 98 F 79 12 121/91 99 12/23/18 14:35 75 12 119/80 99 12/23/18 14:25 82 14 118/82 100 12/23/18 14:15 97.6 F 83 14 116/74 99 12/23/18 11:40 67 14 97/57 100 12/23/18 11:26 69 16 144/89 98 12/23/18 10:19 97.9 F 67 16 127/75 98 Intake and Output 12/23/18 12/23/18 12/24/18 15:59 23:59 07:59 Intake Total 200 / 200 1200 / 1200 Output Total 200 / 200 Balance -200 / -200 200 / 200 1200 / 1200 Intake: IV Fluids 100 / 100 Ancef 2,000 MG In 0.9 % Sodium 100 / 100 Chloride 100 ML @ 200 mls/hr IVPB Q8H YESSY Rx#:[id number] Oral 100 / 100 1200 / 1200 Output: Estimated Blood Loss 200 / 200 Other: # Voids 1 Weight 99.79 kg 99.6 kg Blood Glucose* 83 216 Patient Weight 12/24/18 23:59 Weight 99.6 kg - Labs CBC & BMP: 12/23/18 14:30 Consult Discharge Plan - Plan Referrals: Hieu Bey MD [Primary Care Provider] -
[2018-12-24] MEDS ORDERED: BuPROPion SR (12 HR) 150 MG TABLET PO SCH (09:00)
[2018-12-24] MEDS ORDERED: NON-FORMULARY MEDICATION 1 EACH EACH (Fluoxetine Hcl [Prozac] 40 MG) PO SCH (09:00)
[2018-12-24] MEDS ORDERED: Fluticasone Propionate Nasal 50 MCG/SPRAY BOTTLE NS SCH (09:00)
[2018-12-24] MEDS ORDERED: Multivit/Ca/Min/Fe/FA 1 TAB TABLET PO SCH (09:00)
[2018-12-24] MEDS ORDERED: hydroCHLOROthiazide 25 MG TABLET PO SCH (09:00)
[2018-12-24] MEDS ORDERED: FLUoxetine 20 MG CAPSULE PO SCH (09:00)
[2018-12-24] MEDS: Ascorbic Acid 500 MG TABLET PO SCH (09:37)
[2018-12-24] MEDS: *HR* Metformin 500 MG TABLET PO SCH (09:38)
[2018-12-24] MEDS: Topiramate 25 MG TABLET PO SCH (09:41)
[2018-12-24 10:29] LABS: Basophils % 0.3 %; Eosinophils % 0.2 %; Hemoglobin 11.9 g/dL (11.5-15.4); Immature Granulocytes % 0.4 % (0-4); Lymphocytes % 25.2 %; Mean Corpuscular Hemoglobin 30.3 pg (28.0-33.3); Mean Corpuscular Volume 89.1 fL (83.0-100.0); Monocytes # 1.1 K/mcL (0.0-1.3); Monocytes % 8.8 %; Neutrophils # 7.8 K/mcL (1.6-8.9); Platelet Count 206 K/mcL (140-400); Red Blood Count 3.93 M/mcL (3.82-4.97); Red Cell Distribution Width 12.3 % (11.5-14.5); Segmented Neutrophils % 65.1 %
[2018-12-24 10:49] LABS: Potassium 3.6 mEq/L (3.5-5.1)
[2018-12-24 13:11] VITALS: BP 140/80
== END 2018-12-24 15:30 | disposition home or self-care (01) | DRG 302 ==
LOC: SAMDAY 09:32 → 3NENU 15:18
PROVIDERS: ADMIT Orthopaedic Surgery; ATTEND Orthopaedic Surgery